=== PATIENT | male | born 1995 | race Caucasian/White ===

== ENCOUNTER → 2017-06-05 | Outpatient (CLI) | payer OTHER ==
--- NOTE | 2017-06-05 09:45 | Diagnostic Imaging Report ---
INDICATION: Left hand pain. TIME OF EXAMINATION: 9:37 AM. FINDINGS: Three views of the left hand were obtained. The alignment is normal. The metacarpals and phalanges are intact. The carpal bones are intact. No fractures are seen. The joint spaces are well-maintained. IMPRESSION: No acute abnormality is detected. Dictated by: Dictated on workstation # [id number]
--- NOTE | 2017-06-05 09:45 | Diagnostic Imaging Report ---
INDICATION: Recent carpal tunnel surgery with continued right hand pain. TIME OF EXAMINATION: 9:42 AM. FINDINGS: The distal radius and ulna are intact. The carpal bones are intact. The metacarpals and phalanges appear intact. No fractures are seen. The joint spaces are maintained. IMPRESSION: No acute abnormality is identified. Dictated by: Dictated on workstation # [id number]
== END ==
LOC: RAD 09:03
PROVIDERS: ATTEND Internal Medicine Rheumatology
DX: M19.041 Primary osteoarthritis, right hand (principal); M19.042 Primary osteoarthritis, left hand; Z98.890 Other specified postprocedural states
CPT/HCPCS: 73130

== ENCOUNTER → 2020-01-29 | Outpatient (CLI) | payer OTHER ==
[2020-01-29 08:29] LABS: WHITE BLOOD COUNT 3.3 10^3/uL (4.3-11.0)
[2020-01-29 08:46] LABS: ALANINE AMINOTRANSFERASE 48 U/L (0-55); ALBUMIN 4.3 GM/DL (3.2-4.5); ALKALINE PHOSPHATASE 57 U/L (40-136); BILIRUBIN,TOTAL 0.8 MG/DL (0.1-1.0); BUN/CREATININE RATIO 19; CALCIUM 9.3 MG/DL (8.5-10.1); CARBON DIOXIDE 24 MMOL/L (21-32); CHLORIDE 102 MMOL/L (98-107); CREATININE SERUM 1.13 MG/DL (0.60-1.30); GFR ESTIMATED > 60; GLUCOSE 108 MG/DL (70-105); POTASSIUM 3.9 MMOL/L (3.6-5.0); SODIUM 138 MMOL/L (135-145); TOTAL PROTEIN 7.8 GM/DL (6.4-8.2)
== END ==
LOC: LABNPT 05:52
PROVIDERS: ATTEND Internal Medicine
DX: G45.9 Transient cerebral ischemic attack, unspecified (principal); R11.2 Nausea with vomiting, unspecified; R19.7 Diarrhea, unspecified; R43.8 Other disturbances of smell and taste; R50.9 Fever, unspecified; Z20.828 Contact with and (suspected) exposure to other viral communicable diseases
CPT/HCPCS: 80053; 85027; 86141; 87804; U0002; 87635